=== PATIENT | female | born 1985 | race Caucasian/White ===

== ENCOUNTER 2019-11-06 07:25 | Day surgery (SDC) | payer OTHER ==
[~2019-11-06] VITALS: Ht 157.5 cm; Wt 56.3 kg
[~2019-11-06 07:25] MED LIST: HYDACE5 PO; MEDR150I; PHENA200 PO; Percocet 5-3251 EACH PO; SULTRIDS PO; Tamiflu75 MG PO; Zofran Odt4 MG SL; [UNRECOGNIZED DRUG - OTHER]
== END 2019-11-06 11:10 | disposition home or self-care (01) ==
LOC: ORSCSDS 07:25
PROVIDERS: Obstetrics & Gynecology
PROC: 0UB74ZZ Excision of Bilateral Fallopian Tubes, Percutaneous Endoscopic Approach (ICD-10-PCS; principal; 2019-11-06 08:45)
DX: Z30.2 Encounter for sterilization (principal); N80.3 Endometriosis of pelvic peritoneum
CPT/HCPCS: 88302; J0171; J0690; J1100; J1885; J2250; J2405; J2704; J2710; J2765; J3010; J7120

== ENCOUNTER → 2023-11-28 | Outpatient (CLI) | payer OTHER | END | disposition home or self-care (01) | LOC: LAB 12:22 → LAB SHORT 12:22 | DX: N39.0 Urinary tract infection, site not specified (principal) | CPT/HCPCS: 87077; 87086; 87186 ==